=== PATIENT | male | born 1970 | race Caucasian/White ===

== ENCOUNTER 2021-08-09 08:51 | Day surgery (SDC) | payer OTHER ==
--- NOTE | 2021-08-07 14:57 | HP ---
DATE OF SURGERY: 08/09/2021 HISTORY OF PRESENT ILLNESS: The patient is a 51-year-old male who presents for colonoscopy. The patient has not had any colonoscopy to date. He denies any GI signs or symptoms at this time. He denies any family history of colon cancer. PAST MEDICAL HISTORY: Hypertension, diabetes, hyperlipidemia, gout. PAST SURGICAL HISTORY: Left ankle surgery. Appendectomy. ALLERGIES: PENICILLIN. CEPHALEXIN. MEDICATIONS: Hydrochlorothiazide, metformin, Tamsulosin, pravastatin, lisinopril, allopurinol, lansoprazole. FAMILY HISTORY: Hypertension, diabetes, liver cancer, bladder cancer. SOCIAL HISTORY: Occasional alcohol. REVIEW OF SYSTEMS: CONSTITUTIONAL: Denies fever or chills. CHEST: Denies shortness of breath. CVS: Denies chest pain. ABDOMEN: Denies abdominal pain, nausea, vomiting, diarrhea, constipation or rectal bleeding. PHYSICAL EXAMINATION: GENERAL: No acute distress. CHEST: Nonlabored. No shortness of breath. CVS: Regular rate and rhythm. ABDOMEN: Soft, nontender. IMPRESSION: Screening. PLAN: Colonoscopy with Dr. Thony Marrero. As dictated by Janki Villatoro NP.
[2021-08-09] MEDS ORDERED: Lactated Ringers 1,000 ML IV SCH (09:00)
[2021-08-09] MEDS ORDERED: Versed 2 MG/2 ML Injection ONE (11:39)
[2021-08-09] MEDS ORDERED: DIPRIVAN 200 MG/20 ML IV ONE (11:39)
[2021-08-09 12:44] VITALS: BP 139/91; PULSE 66; O2SAT 99
--- NOTE | 2021-08-09 12:55 | OP ---
SURGERY DATE/TIME: 08/09/2021 1136 PREOPERATIVE DIAGNOSIS: A 51-year-old for screening. POSTOPERATIVE DIAGNOSES: 1) Moderate internal hemorrhoids otherwise normal. 2) Prep score was only good. PLAN: Rescope in five years because of the prep score. PROCEDURE: Colonoscopy complete to cecum. SURGEON: Thony Marrero M.D. ANESTHESIA: MAC. COMPLICATIONS: None. CONDITION: Stable. INDICATION: The patient is a 51-year-old presents for screening. DESCRIPTION OF PROCEDURE: Taken to endoscopy. MAC sedation provided. Anal digital examination satisfactory. Prostate satisfactory. Scope introduced. The scope advanced to the cecum. Ileocecal valve was readily identified. Appendix was a little harder but clearly present. Appendiceal orifice was normal. Base of the cecum normal. Ascending, hepatic, transverse, splenic, descending, sigmoid, rectum, anus. No sigmoid diverticulosis. No rectal pathology. There was moderate internal hemorrhoids. The patient tolerated the procedure satisfactorily. We recommended a five year follow up.
== END 2021-08-09 12:47 | disposition home or self-care (01) ==
LOC: SDC 08:51
PROVIDERS: ATTEND Surgery
DX: Z12.11 Encounter for screening for malignant neoplasm of colon (principal); K64.8 Other hemorrhoids; E11.9 Type 2 diabetes mellitus without complications
CPT/HCPCS: 82947; J2250; J2704